=== PATIENT | male | born 2000 | race Two or more races ===

== ENCOUNTER 2024-08-07 19:49 | Emergency (ER) | payer OTHER ==
[~2024-08-07] VITALS: Ht 157.5 cm; Wt 59.1 kg
[2024-08-07 20:01] VITALS: BP 113/78; PULSE 82; RESP 18; TEMP 98.9; O2SAT 99
[2024-08-07] MEDS ORDERED: IBUP-1554 PO (22:13)
[2024-08-07] MEDS ORDERED: ACET-2080 PO (22:13)
[2024-08-07] MEDS ORDERED: PENI500T2 PO (22:13)
[2024-08-07] MEDS: ACETAMINOPHEN/CODEINE 300-30 MG TABLET PO ONE (22:35)
[2024-08-07] MEDS: CEPHALEXIN MONOHYDRATE 500 MG CAPSULE PO ONE (22:35)
[2024-08-07] MEDS: IBUPROFEN 600 MG TABLET PO ONE (22:35)
== END 2024-08-07 22:47 | disposition home or self-care (01) ==
LOC: EMS 19:49
DX: K04.7 Periapical abscess without sinus (principal)
CPT/HCPCS: 99284; Z7502; Z7610

== ENCOUNTER → 2024-10-07 | Emergency (ER) | payer OTHER ==
[~2024-10-07] VITALS: Ht 165.1 cm; Wt 55.0 kg
[~2024-10-07] MED LIST: ACET-2080 PO; AMOX-457 PO; IBUP-1554 PO; PENI500T2 PO; TRAM50TA5 PO
[2024-10-07 16:14] VITALS: BP 102/65; PULSE 75; RESP 18; TEMP 98.4; O2SAT 100
[2024-10-07] MEDS: AMOX TR/POT CLAV 875 MG/125 MG TABLET PO ONE (18:18)
[2024-10-07] MEDS: TraMADol HCL 50 MG TABLET PO ONE (18:19)
== END | disposition home or self-care (01) ==
LOC: EMS 16:16
DX: K04.7 Periapical abscess without sinus (principal)
CPT/HCPCS: 99283